=== PATIENT | female | born 1950 | race Two or more races ===

== ENCOUNTER 2018-03-26 05:39 | Day surgery (SDC) | payer MEDICARE, OTHER ==
[2018-03-22 09:19] LABS: BASOPHILS % (AUTO) 1.3 % (0.0-2.0); EOSINOPHILS % (AUTO) 2.1 % (0.0-3.0); HEMATOCRIT 37.6 % (37.0-47.0); HEMOGLOBIN 12.4 G/DL (12.0-16.0); LYMPHOCYTES % (AUTO) 38.7 % (20.0-45.0); MEAN CORPUSCULAR VOLUME 91 FL (80-99); NEUTROPHILS % (AUTO) 49.8 % (45.0-75.0); PLATELET COUNT 333 K/UL (150-450); RED BLOOD COUNT 4.13 M/UL (4.20-5.40); RED CELL DISTRIBUTION WIDTH 13.2 % (11.6-14.8); WHITE BLOOD COUNT 7.4 K/UL (4.8-10.8)
[2018-03-22 09:23] LABS: ANION GAP 6 mmol/L (5-15); BLOOD UREA NITROGEN 13 mg/dL (7-18); CALCIUM 8.6 MG/DL (8.5-10.1); CARBON DIOXIDE 28 MMOL/L (21-32); CHLORIDE 109 MMOL/L (98-107); CREATININE 0.7 MG/DL (0.55-1.30); POTASSIUM 4.4 MMOL/L (3.5-5.1); SODIUM 143 MMOL/L (136-145)
--- NOTE | 2018-03-23 12:06 | Opthalmology H&P ---
Ophthalmology H&P H&P Chief Complaint: decreased vision in left eye HPI Vision Affects Ability to: read, focus/use eyes together HPI Narrative Blurry Vision Exam Visual Acuity: OD 20/80 OS Counting Fingers Tension: OD 15 OS 13 Eye Exam: normal OU: external exam, palpebral fissure-width, marginal reflex distance, levator function, corneas, anterior chambers; findings: lens - Dense Cataract Left Eye, fundus exam - Poor View Left Eye Assessment/Plan Treatment Plan: cataract extraction w/ lens implant Goals of Treatment: improvement of vision, enhance quality of life Attestation Attestation The risks and benefits of the surgery as well as alternative procedures were explained to the patient in detail. Emanuel Crockett MD Mar 23, 2018 12:06
--- NOTE | 2018-03-23 12:08 | Pre-Procedure Note/Attestation ---
Pre-Procedure Note/Attestation Complete Prior to Procedure Planned Procedure: left Procedure Narrative: Cataract Extraction With IOL Implant Left Eye Indications for Procedure Pre-Operative Diagnosis: Mature Cataract Left Eye Attestation I attest that I discussed the nature of the procedure; its benefits; risks and complications; and alternatives (and the risks and benefits of such alternatives ), prior to the procedure, with the patient (or the patient's legal sales representative metals). I attest that, if there was a reasonable possibility of needing a blood transfusion, the patient (or the patient's legal sales representative metals) was given the [facility] standardized written summary, pursuant to the Stu Patience Blood Safety Act ([place] Health and Safety Code # 1645, as amended). I attest that I re-evaluated the patient just prior to the surgery and that there has been no change in the patient's H&P, except as documented below: Emanuel Crockett MD Mar 23, 2018 12:08
--- NOTE | 2018-03-23 17:15 | Pre-op HX & Phy Repo 2 SIG ---
DATE OF ADMISSION: 03/26/2018 PRESURGICAL INTERNAL MEDICINE HISTORY AND PHYSICAL DATE OF SURGERY: 03/26/2018. HISTORY OF PRESENT ILLNESS: I was asked by Dr. Emanuel Crockett to see this 67-year-old female, who is going for elective surgery at [facility] on the left eye. The patient had a cataract, left eye. Please see full History and Physical by Dr. Emanuel Crockett. So, the patient on 03/22/2018 with Outpatient Surgical Department at [facility]. The patient was examined. Chart was reviewed. PAST MEDICAL HISTORY/REVIEW OF SYSTEMS: Remarkable for hypertension, stroke in 2009, hyperlipidemia, and degenerative joint disease of knee. No heart attack. No chest pain or palpitations. No asthma or bronchitis. No diabetes mellitus. No renal failure. No anemia. PAST SURGICAL HISTORY: Tubal ligation and bladder suspension. FAMILY HISTORY: from prostate cancer. Mother of young age, 39 from brain aneurysm. ALLERGIES: The patient complain of dry cough with possible blood pressure medication. MEDICATIONS: Present medication include atorvastatin 10 mg, losartan 100 mg, baby aspirin, and Motrin 600 mg for pain. HABITS: The patient is a smoker in the distant past, less than 3 years. Denied alcohol or street drug use. PHYSICAL EXAMINATION: GENERAL: Alert. VITAL SIGNS: Blood pressure 139/74, temperature 971, pulse 65, respirations 18, and O2 saturation 97% on room air. SKIN: Dry and pale. Clear. LYMPHATICS: Lymph nodes not enlarged. HEENT: Head, normocephalic. Eyes, full description per Dr. Emanuel Crockett. Mouth, clear and moist. HEART: Sinus bradycardia. No ectopy. No murmur. No S3 or S4. NECK: Supple. No jugular venous distention. Carotids artery +2. Trachea midline. LUNGS: No rales or rhonchi. ABDOMEN: Soft, obese. No palpable mass. No rebound. EXTREMITIES: No edema. No psoriasis. No calf tenderness. GENITOURINARY TRACT: No dysuria. No CVA nontender. NERVOUS: No tremor. No nystagmus. No asymmetry. LABORATORY AND DIAGNOSTIC DATA: Electrocardiogram, normal sinus rhythm, 62 per minute, low-voltage QRS, left anterior fascicular block, and possible anterolateral myocardial infarction old. Laboratory work pending. The patient to be NPO after midnight Monday. IMPRESSION: 1. Cataract, left eye. 2. Hypertension. 3. Hyperlipidemia. 4. Degenerative joint disease. PLAN: Cataract extraction, left eye with intraocular lens implant per Dr. Emanuel Crockett. CONCLUSION: A 67-year-old female, who has normal vital signs. She has history of hypertension and appropriate medication. The patient had EKG changes, low-voltage QRS, and left anterior fascicular block, possible anterolateral MS old. The patient should be NPO after midnight Monday and the patient's condition optimized for surgery. Debbie Avila M.D. DR: ROXIE JOB#: [id number] CC:
--- NOTE | 2018-03-25 13:12 | Cardiology Report ---
APPROVED REPORT EKG Measurement Heart [id number] Normal sinus rhythm Low voltage QRS Left anterior fascicular block Possible Anterolateral infarct, age undetermined Abnormal ECG
[~2018-03-26] VITALS: Ht 154.9 cm; Wt 90.7 kg
[2018-03-26] VITALS (9 sets, daily range): BP systolic 131–145; BP diastolic 62–84
[~2018-03-26 05:39] MED LIST: ASPIR 8181 MG ORAL; ATORVASTATIN CA10 MG ORAL; IBUPROFEN600 MG ORAL; LOSARTAN POTAS100 MG ORAL
[2018-03-26] MEDS: Tobramycin Op Soln 0.3% 5ml LEFT EYE SCH ×3 (06:38→06:52)
[2018-03-26] MEDS: Tropicamide 1% Opth 15ml Soln LEFT EYE SCH ×3 (06:38→06:51)
[2018-03-26] MEDS: Phenylephrine 10% Opth Soln 5ml LEFT EYE SCH ×3 (06:39→06:51)
[2018-03-26] MEDS: Cyclopentolate 1% Opth Sol 2ml LEFT EYE SCH ×3 (06:39→06:51)
[2018-03-26] MEDS: Diclofenac Sod 0.1% Op Soln LEFT EYE SCH ×3 (06:39→06:51)
[2018-03-26] MEDS ORDERED: Proparacaine 0.5% Opth Soln 15ml LEFT EYE ONE (07:00)
[2018-03-26] MEDS ORDERED: Dexamethasone 4mg/ml vial ONE (07:00)
[2018-03-26] MEDS ORDERED: Pilocarpine 1% Opth 15ml Soln ONE (07:00)
[2018-03-26] MEDS ORDERED: Pred Forte 1% Opth Susp 1ml ONE (07:00)
[2018-03-26] MEDS ORDERED: Akten 3.5% 1ml Btl LEFT EYE ONE (07:00)
[2018-03-26] MEDS ORDERED: Tetracaine 0.5% Opth 4ml Soln LEFT EYE ONE (07:00)
[2018-03-26] MEDS ORDERED: fentaNYL 100 mcg/2 mL IV ONE ×2 (07:00→07:13)
[2018-03-26] MEDS ORDERED: Maxitrol Opth Oint 3.5gm ONE (07:00)
[2018-03-26] MEDS ORDERED: Midazolam 2mg/2ml Inj ONE (07:13)
[2018-03-26] MEDS ORDERED: acetaZOLAMIDE 500mg Inj ONE (07:19)
[2018-03-26] MEDS ORDERED: Lidocaine 4% Amp ONE (07:19)
[2018-03-26] MEDS ORDERED: EPINEPHrine 1mg/1ml Amp ONE (07:19)
[2018-03-26] MEDS ORDERED: Carbachol 0.01% Op Soln 1.5ml vial ONE (07:19)
[2018-03-26] MEDS ORDERED: Povidone-Iodine 5% opth solution ONE (07:20)
[2018-03-26] MEDS ORDERED: BSS 500ml btl ONE (07:20)
[2018-03-26] MEDS ORDERED: BSS 15ml BTL ONE (07:20)
[2018-03-26] MEDS ORDERED: Sodium Hyaluronate 14 mg/ml 0.85ml ONE (07:21)
[2018-03-26] MEDS ORDERED: Lidocaine 2% MPF 5ml Vial INJ ONE (07:21)
[2018-03-26] MEDS ORDERED: Bupivacaine 0.75% 30ml vial INJ ONE (07:21)
[2018-03-26] MEDS ORDERED: Sterile Water Irrig 1000ml IRRIG ONE (07:30)
[2018-03-26] MEDS ORDERED: LR 1000ml ONE (07:30)
[2018-03-26] MEDS ORDERED: fentaNYL 100 mcg/2 mL IV PRN (07:30)
[2018-03-26] MEDS ORDERED: NS Irrig 1000ml ONE (07:30)
[2018-03-26] MEDS ORDERED: DiphenhydrAMINE 50mg/ml Inj IVP PRN (07:30)
[2018-03-26] MEDS ORDERED: Midazolam 2mg/2ml Inj IVP PRN (07:30)
[2018-03-26] MEDS ORDERED: Atropine Inj 1mg/10ml Syr IV PRN (07:30)
--- NOTE | 2018-03-26 07:32 | Anethesia Preoperative Eval ---
Anesthesia Pre-op PMH/ROS General Date of Evaluation: Mar 26, 2018 Time of Evaluation: 07:28 Anesthesiologist: lopez ASA Score: ASA 3 Mallampati Score Class I : Soft palate, uvula, fauces, pillars visible Class II: Soft palate, uvula, fauces visible Class III: Soft palate, base of uvula visible Class IV: Only hard plate visible Mallampati Classification: Class II Surgeon: fredrick Diagnosis: nuclear sclerotic cataract left eye Surgical Procedure: cataract extraction w/iol implant left eye Anesthesia History: none Social History: smoking - nonsmoker Family History: no anesthesia problems Allergies: Coded Allergies: No Known Allergies (Unverified , 03/26/18) Medications: see eMAR Patient NPO?: Yes Past Medical History Cardiovascular: Reports: HTN Neurologic/Psychiatric: Reports: CVA HEENT: Reports: cataract (L), [place] (R) Musculoskeletal/Integumentary: Reports: OA Other: obesity Anesthesia Pre-op Phys. Exam Physician Exam Last Vital Signs Date Time Temp Pulse Resp B/P (MAP) Pulse Ox O2 Delivery O2 Flow Rate FiO2 03/26/18 06:43 97.9 67 18 141/77 98 Room Air Constitutional: NAD Neurologic: CN 2-12 intact Cardiovascular: RRR Respiratory: CTA Gastrointestinal: S/NT/ND Airway Exam Mallampati Score: Class II MO: limited Neck: short TMD: 2fb ROM: limited Anesthesia Pre-op A/P Risk Assessment & Plan Assessment: asa3 Plan: mac Status Change Before Surgery: No Pre-Antibiotics Drug: Ivone Allen MD Mar 26, 2018 07:32
--- NOTE | 2018-03-26 09:02 | Immediate Post-Op Evaluation ---
Immediate Post-Op Evalulation Immediate Post-Op Evalulation Procedure: cataract extraction w/iol implant left eye Date of Evaluation: Mar 26, 2018 Time of Evaluation: 08:34 IV Fluids: 250ml lr Blood Products: none Estimated Blood Loss: negligible Blood Pressure Systolic: 145 Blood Pressure Diastolic: 84 Pulse Rate: 65 Respiratory Rate: 18 O2 Sat by Pulse Oximetry: 98 Temperature (Fahrenheit): 98.5 Pain Score (1-10): 0 Nausea: No Vomiting: No Complications none Patient Status: awake, reacts, patent Hydration Status: adequate Drug: Ivone lAlen MD Mar 26, 2018 09:02
--- NOTE | 2018-03-26 10:03 | 48 Hour Post Anesthesia Eval ---
Post Anesthesia Evaluation Procedure: cataract extraction w/iol implant left eye Date of Evaluation: Mar 26, 2018 Time of Evaluation: 08:36 Blood Pressure Systolic: 131 0: 62 Pulse Rate: 62 Respiratory Rate: 18 Temperature (Fahrenheit): 98.5 O2 Sat by Pulse Oximetry: 98 Airway: patent Nausea: No Vomiting: No Pain Intensity: 0 Hydration Status: adequate Cardiopulmonary Status: stable Mental Status/LOC: patient returned to baseline Post-Anesthesia Complications: none Follow-up care needed: N/A Ivone Hdez MD Mar 26, 2018 10:03
--- NOTE | 2018-03-27 13:39 | Brief Operative Note ---
Immediate Post Operative Note Operative Note Chief Complaint: blurry vision Pre-op Diagnosis: Mature Cataract Left Eye Procedure: phaco with IOL Post-op Diagnosis: pseudophakia Post-op Diagnosis: same as pre-op Findings: consistent w/pre-op dx studies Surgeon: Keira Anesthesiologist: Junior Gutierrez Anesthesia: MAC Specimen: none Complications: none Condition: stable Fluids: LR Estimated Blood Loss: none Drains: none Implant(s) used?: Yes Emanuel Crockett MD Mar 27, 2018 13:39
--- NOTE | 2018-03-27 13:40 | Operative Note - PDOC ---
Operative Note Operative Note Date of Operation/Procedure: Mar 26, 2018 Chief Complaint: blurry vision Pre-op Diagnosis: Mature Cataract Left Eye Procedure: phaco with IOL Post-op Diagnosis: pseudophakia Post-op Diagnosis: same as pre-op Operative Findings: consistent w/pre-op dx studies Surgeon: Keira Anesthesiologist: Junior Gutierrez Anesthesia: MAC Specimen: none Complications: none Condition: stable Fluids: LR Estimated Blood Loss: none Drains: none Implant(s) used?: Yes Indications for Procedure cataract Description of Procedure This patient has been complaining visually significant cataract in the affected eye with the best corrected visual acuity under moderate glare conditions worse. The patient complains of difficulties with glare in performing activities of daily living and wants to manage personal affairs with comfort and accuracy and see well enough to move with safety at home and outdoors. The risks, benefits and alternatives of the procedure were discussed with the patient in the office prior to scheduling surgery. All questions from the patient were answered after the surgical procedure was explained in detail. The risks of the procedure as explained to the patient include, but are not limited to, pain, infection, bleeding, loss of vision, retinal detachment, need for further surgery, loss of lens nucleus, double vision, etc. Alternative procedures were discussed which include, to do nothing or seek a second opinion. Informed consent for this procedure was obtained from the patient. The patient was referred to a primary care physician for a cardiopulmonary clearance prior to surgery, after proper evaluation was done patient was properly scheduled for outpatient surgery. The patient was brought to the operating room where the anesthesiologist established I.V. lines and cardiac monitoring leads. Mild intravenous sedation was administered. The patient was then prepared with a 5% solution of povidone -iodine to the conjunctival fornix and lashes, and a 5% solution of povidone- iodine to the lids and periorbital skin. The patient was then draped in the usual sterile fashion. A lid speculum was then placed in the operative eye. A keratome blade was then used to create a biplanar incision into the anterior chamber. Viscoelastics was then instilled into the anterior chamber. A 3-mm single pass clear corneal incision was made just anterior to the vascular arcade of the temporal limbus using a keratome. Curvilinear anterior capsulorrhexis was created. The nucleus was hydrodissected and hydrodelineated, and was freely movable in the capsular bag. The nucleus was then phacoemulsified. Following the deep groove formation, the lens was split bimanually and epicortex removed under vacuum burst-mode phacoemulsification. Peripheral cortex was removed with the irrigation and aspiration handpiece. The capsular bag was expanded with viscoelastic. The intraocular lens was then inspected for right power and size and thought to be satisfactory. The implant was inspected under the microscope and found to be free of defects. The implant was inserted into the cartridge system under viscoelastic and placed in the capsular bag. The trailing haptic was positioned with the cartridge system. Viscoelastics was removed from the anterior chamber using the irrigation and aspiration unit. The corneal wound was then tested for leaks and none were found. The lid speculum were then removed. Sponge and needle counts were correct. An eye patch and shield were placed over the operative eye. The patient was taken to the recovery room in stable condition. There were no complications. The patient tolerated the procedure well. The patient was then transferred to the ambulatory surgery unit in stable and satisfactory condition , was given detailed written instructions and asked to follow up in the office the next day. Emanuel Crockett MD Mar 27, 2018 13:40
== END 2018-03-26 09:45 | disposition home or self-care (01) ==
LOC: SUR 05:39
DX: H25.12 Age-related nuclear cataract, left eye (principal); I10 Essential (primary) hypertension; E78.5 Hyperlipidemia, unspecified; M17.10 Unilateral primary osteoarthritis, unspecified knee; E66.9 Obesity, unspecified; Z86.73 Personal history of transient ischemic attack (TIA), and cerebral infarction without residual deficits; Z98.51 Tubal ligation status
CPT/HCPCS: 36415; 66984; 80048; 85025; 93005; J0171; J1100; J1120; J2250; J3010; J3370; V2632; 94003; 94150

== ENCOUNTER 2018-05-28 05:05 | Day surgery (SDC) | payer MEDICARE, OTHER ==
--- NOTE | 2018-05-25 10:58 | Opthalmology H&P ---
Ophthalmology H&P H&P Chief Complaint: decreased vision in right eye HPI Vision Affects Ability to: read, manage personal affairs HPI Narrative Blurry Vision Exam Visual Acuity: OD 20/80 OS 20/50 Tension: OD 15 OS 15 Eye Exam: normal OU: external exam, palpebral fissure-width, marginal reflex distance, levator function, corneas, anterior chambers, fundus exam; findings: lens - NS Cataract Assessment/Plan Treatment Plan: cataract extraction w/ lens implant Goals of Treatment: improvement of vision, enhance quality of life Attestation Attestation The risks and benefits of the surgery as well as alternative procedures were explained to the patient in detail. Emanuel Crockett MD May 25, 2018 10:58
--- NOTE | 2018-05-25 11:00 | Pre-Procedure Note/Attestation ---
Pre-Procedure Note/Attestation Complete Prior to Procedure Planned Procedure: right Procedure Narrative: Cataract Extraction With Intraocular Lens Implant Right Eye Indications for Procedure Pre-Operative Diagnosis: Nuclear Sclerotic Cataract Right Eye Attestation I attest that I discussed the nature of the procedure; its benefits; risks and complications; and alternatives (and the risks and benefits of such alternatives ), prior to the procedure, with the patient (or the patient's legal merchandising representative). I attest that, if there was a reasonable possibility of needing a blood transfusion, the patient (or the patient's legal merchandising representative) was given the [facility] standardized written summary, pursuant to the Stu Patience Blood Safety Act ([place] Health and Safety Code # 1645, as amended). I attest that I re-evaluated the patient just prior to the surgery and that there has been no change in the patient's H&P, except as documented below: Emanuel Crockett MD May 25, 2018 11:00
[2018-05-28] VITALS (9 sets, daily range): BP systolic 126–144; BP diastolic 53–85
[~2018-05-28] VITALS: Ht 160 cm; Wt 90.7 kg
[~2018-05-28 05:05] MED LIST changes: +AMLODIPINE BESYL5 MG ORAL
[2018-05-28] MEDS: Tobramycin Op Soln 0.3% 5ml RIGHT EYE SCH ×3 (06:21→06:53)
[2018-05-28] MEDS: Cyclopentolate 1% Opth Sol 2ml RIGHT EYE SCH ×3 (06:21→06:53)
[2018-05-28] MEDS: Tropicamide 1% Opth 15ml Soln RIGHT EYE SCH ×3 (06:21→06:53)
[2018-05-28] MEDS: Phenylephrine 10% Opth Soln 5ml RIGHT EYE SCH ×3 (06:21→06:53)
[2018-05-28] MEDS: Diclofenac Sod 0.1% Op Soln RIGHT EYE SCH ×3 (06:21→06:53)
[2018-05-28] MEDS ORDERED: Pred Forte 1% Opth Susp 1ml ONE (07:00)
[2018-05-28] MEDS ORDERED: Dexamethasone 4mg/ml vial ONE (07:00)
[2018-05-28] MEDS ORDERED: Maxitrol Opth Oint 3.5gm ONE (07:00)
[2018-05-28] MEDS ORDERED: Pilocarpine 1% Opth 15ml Soln ONE (07:00)
[2018-05-28] MEDS ORDERED: Akten 3.5% 1ml Btl RIGHT EYE ONE (07:00)
[2018-05-28] MEDS ORDERED: Proparacaine 0.5% Opth Soln 15ml RIGHT EYE ONE (07:00)
[2018-05-28] MEDS ORDERED: Tetracaine 0.5% Opth 4ml Soln RIGHT EYE ONE (07:00)
[2018-05-28] MEDS ORDERED: fentaNYL 100 mcg/2 mL IV ONE (07:15)
[2018-05-28] MEDS ORDERED: Propofol 200mg/20ml IV ONE (07:16)
[2018-05-28] MEDS ORDERED: Midazolam 2mg/2ml Inj ONE (07:16)
[2018-05-28] MEDS ORDERED: LR 1000ml ONE (08:00)
[2018-05-28] MEDS ORDERED: LR 1000ml 1,000 ML IVLG SCH (08:06)
--- NOTE | 2018-05-28 08:06 | Anethesia Preoperative Eval ---
Anesthesia Pre-op PMH/ROS General Date of Evaluation: May 28, 2018 Time of Evaluation: 07:20 Anesthesiologist: Lilian ASA Score: ASA 3 Mallampati Score Class I : Soft palate, uvula, fauces, pillars visible Class II: Soft palate, uvula, fauces visible Class III: Soft palate, base of uvula visible Class IV: Only hard plate visible Mallampati Classification: Class III Surgeon: Keira Diagnosis: R eye cataract Surgical Procedure: R eye cataract extraction Anesthesia History: none Allergies: Coded Allergies: No Known Allergies (Unverified , 05/24/18) Medications: see eMAR Patient NPO?: Yes Past Medical History Cardiovascular: Reports: HTN; Denies: CAD, [place], valve dz, arrhythmia, other Pulmonary: Reports: ARIEL; Denies: asthma, COPD, other Gastrointestinal/Genitourinary: Reports: GERD; Denies: CRI, ESRD, other Neurologic/Psychiatric: Denies: dementia, CVA, depression/anxiety, TIA, other Endocrine: Reports: DM - borderline; Denies: hypothyroidism, steroids, other HEENT: Reports: cataract (L), cataract (R); Denies: glaucoma, [place] (L), WIYOT (R), other Hematology/Immune: Denies: anemia, DVT, bleeding disorder, other Musculoskeletal/Integumentary: Denies: OA, RA, DJD, DDD, edema, other Other: obesity PMH Narrative: as above Anesthesia Pre-op Phys. Exam Physician Exam Last Vital Signs Date Time Temp Pulse Resp B/P (MAP) Pulse Ox O2 Delivery O2 Flow Rate FiO2 05/28/18 05:41 Room Air 05/28/18 05:37 97.0 85 18 138/85 96 Constitutional: NAD Neurologic: CN 2-12 intact Cardiovascular: RRR, no M/R/G Respiratory: CTA Gastrointestinal: other - obesity Airway Exam Mallampati Score: Class III MO: limited Neck: short ROM: limited Teeth: missing Dentures: no upper, no lower Anesthesia Pre-op A/P Labs see chart Studies Pre-op Studies: EKG - SR Risk Assessment & Plan Assessment: ASA 3 Plan: MAC Status Change Before Surgery: No Vidal Quintana MD May 28, 2018 08:06
[2018-05-28] MEDS ORDERED: fentaNYL 100 mcg/2 mL IV PRN (08:15)
[2018-05-28] MEDS ORDERED: BSS 15ml BTL ONE (08:19)
[2018-05-28] MEDS ORDERED: EPINEPHrine 1mg/1ml Amp ONE (08:19)
[2018-05-28] MEDS ORDERED: BSS 500ml btl ONE (08:19)
[2018-05-28] MEDS ORDERED: acetaZOLAMIDE 500mg Inj ONE (08:19)
[2018-05-28] MEDS ORDERED: Sodium Hyaluronate 14 mg/ml 0.85ml ONE (08:20)
[2018-05-28] MEDS ORDERED: Povidone-Iodine 5% opth solution ONE (08:20)
--- NOTE | 2018-05-28 08:20 | Immediate Post-Op Evaluation ---
Immediate Post-Op Evalulation Immediate Post-Op Evalulation Procedure: R eye cataract extraction with IOL Date of Evaluation: May 28, 2018 Time of Evaluation: 08:19 IV Fluids: 200 Blood Products: none Estimated Blood Loss: none Urinary Output: none Blood Pressure Systolic: 132 Blood Pressure Diastolic: 70 Pulse Rate: 78 Respiratory Rate: 20 O2 Sat by Pulse Oximetry: 99 Temperature (Fahrenheit): 98.1 Pain Score (1-10): 1 Nausea: No Vomiting: No Complications none Hydration Status: adequate Vidal Quintana MD May 28, 2018 08:20
--- NOTE | 2018-05-28 10:24 | 48 Hour Post Anesthesia Eval ---
Post Anesthesia Evaluation Procedure: R eye cataract extraction with IOL Date of Evaluation: May 28, 2018 Time of Evaluation: 10:23 Blood Pressure Systolic: 142 0: 76 Pulse Rate: 68 Respiratory Rate: 20 Temperature (Fahrenheit): 97.6 O2 Sat by Pulse Oximetry: 98 Airway: patent Nausea: No Vomiting: No Pain Intensity: 1 Cardiopulmonary Status: stable Mental Status/LOC: patient returned to baseline Follow-up Care/Observations: n/a Post-Anesthesia Complications: none Follow-up care needed: ready to discharge Vidal Quintana MD May 28, 2018 10:24
--- NOTE | 2018-05-29 12:38 | Brief Operative Note ---
Immediate Post Operative Note Operative Note Chief Complaint: blurry vision Pre-op Diagnosis: Nuclear Sclerotic Cataract Right Eye Procedure: phaco with IOL Post-op Diagnosis: Pseudophakia Post-op Diagnosis: same as pre-op Findings: consistent w/pre-op dx studies Surgeon: Keira Anesthesiologist: Lilian Anesthesia: MAC Specimen: none Complications: none Condition: stable Fluids: LR Estimated Blood Loss: none Drains: none Implant(s) used?: Yes Emanuel Crockett MD May 29, 2018 12:38
--- NOTE | 2018-05-29 12:39 | Operative Note - PDOC ---
Operative Note Operative Note Date of Operation/Procedure: May 28, 2018 Chief Complaint: blurry vision Pre-op Diagnosis: Nuclear Sclerotic Cataract Right Eye Procedure: phaco with IOL Post-op Diagnosis: Pseudophakia Post-op Diagnosis: same as pre-op Operative Findings: consistent w/pre-op dx studies Surgeon: Keira Anesthesiologist: Lilian Anesthesia: MAC Specimen: none Complications: none Condition: stable Fluids: LR Estimated Blood Loss: none Drains: none Implant(s) used?: Yes Indications for Procedure cataract Description of Procedure This patient has been complaining visually significant cataract in the affected eye with the best corrected visual acuity under moderate glare conditions worse. The patient complains of difficulties with glare in performing activities of daily living and wants to manage personal affairs with comfort and accuracy and see well enough to move with safety at home and outdoors. The risks, benefits and alternatives of the procedure were discussed with the patient in the office prior to scheduling surgery. All questions from the patient were answered after the surgical procedure was explained in detail. The risks of the procedure as explained to the patient include, but are not limited to, pain, infection, bleeding, loss of vision, retinal detachment, need for further surgery, loss of lens nucleus, double vision, etc. Alternative procedures were discussed which include, to do nothing or seek a second opinion. Informed consent for this procedure was obtained from the patient. The patient was referred to a primary care physician for a cardiopulmonary clearance prior to surgery, after proper evaluation was done patient was properly scheduled for outpatient surgery. The patient was brought to the operating room where the anesthesiologist established I.V. lines and cardiac monitoring leads. Mild intravenous sedation was administered. The patient was then prepared with a 5% solution of povidone -iodine to the conjunctival fornix and lashes, and a 5% solution of povidone- iodine to the lids and periorbital skin. The patient was then draped in the usual sterile fashion. A lid speculum was then placed in the operative eye. A keratome blade was then used to create a biplanar incision into the anterior chamber. Viscoelastics was then instilled into the anterior chamber. A capsulorrhexis was then fashioned with an utrata forceps. BSS and a cannula were then used to hydrodissect and hydro delineate the lens. Paracentesis incision was made at 3 o'clock with sharp blade. The phacoemulsification unit, after being properly adjusted and tested, was then used to emulsify the nucleus. Residual cortical material was aspirated with the irrigation and aspiration unit. [place] was then instilled into the anterior chamber. The corneal wound was then enlarged to the size of the optic with the bess keratome blade. The intraocular lens was then inspected for right power and size and thought to be satisfactory. Then the lens was gently placed in the capsular bag. Positioning within the capsular bag was confirmed by direct visualization. Optic centration was accomplished with a [place] hook. Viscoelastics was removed from the anterior chamber using the irrigation and aspiration unit. The corneal wound was then tested for leaks and none were found. The lid speculum were then removed. Sponge and needle counts were correct. An eye patch and shield were placed over the operative eye. The patient was taken to the recovery room in stable condition. There were no complications. The patient tolerated the procedure well. The patient was then transferred to the ambulatory surgery unit in stable and satisfactory condition , was given detailed written instructions and asked to follow up in the office the next day. Emanuel Crockett MD May 29, 2018 12:38
== END 2018-05-28 09:20 | disposition home or self-care (01) ==
LOC: SUR 05:05
DX: H25.11 Age-related nuclear cataract, right eye (principal); I10 Essential (primary) hypertension; K21.9 Gastro-esophageal reflux disease without esophagitis; G47.33 Obstructive sleep apnea (adult) (pediatric); E11.9 Type 2 diabetes mellitus without complications; E66.9 Obesity, unspecified; Z68.35 Body mass index [BMI] 35.0-35.9, adult
CPT/HCPCS: 66984; J0171; J1100; J1120; J2250; J2704; J3010; J3370; V2632; 94003; 94150